=== PATIENT | female | born 1985 | race Caucasian/White ===

== ENCOUNTER 2018-07-17 10:58 | Emergency (ER) | payer SELFPAY ==
[~2018-07-17] VITALS: Ht 160 cm; Wt 59.0 kg
[2018-07-17 11:01] VITALS: BP_SYST 120
[2018-07-17 11:18] VITALS: BP_SYST 121
== END 2018-07-17 11:20 ==
LOC: SED 10:58
DX: S00.83XA Contusion of other part of head, initial encounter (principal); S60.311A Abrasion of right thumb, initial encounter; Y08.89XA Assault by other specified means, initial encounter; Y93.89 Activity, other specified; Y92.89 Other specified places as the place of occurrence of the external cause; Y99.8 Other external cause status
CPT/HCPCS: 99283